=== PATIENT | male | born 1970 | race Two or more races ===

== ENCOUNTER 2020-04-28 23:47 | Emergency (ER) | payer OTHER ==
[~2020-04-28] VITALS: Ht 180.3 cm; Wt 112.9 kg
[2020-04-29] MEDS ORDERED: SODIUM CHLORIDE 0.9% 100 ML ONE (00:05)
[2020-04-29] MEDS ORDERED: IOVERSOL 350 MG/ML 100 ML VIAL ONE (00:05)
[2020-04-29 00:46] LABS: BASOPHILS % (AUTO) 0.4 % (0.0-2.0); EOSINOPHILS % (AUTO) 1.5 % (1.0-6.0); HEMATOCRIT 44.1 % (41-53); HEMOGLOBIN 14.9 g/dL (13.5-17.5); LYMPHOCYTES # (AUTO) 2.5 K/uL (1.0-4.8); LYMPHOCYTES % (AUTO) 24.8 % (22.0-44.0); MEAN CORPUSCULAR HEMOGLOBIN 29.9 pg (26.0-34.0); MEAN CORPUSCULAR HGB CONC 33.9 G/dL (31.0-37.0); MEAN CORPUSCULAR VOLUME 88 fL (80-100); MONOCYTES # (AUTO) 1.3 K/uL (0.1-1.0); MONOCYTES % (AUTO) 12.6 % (2.0-9.0); NEUTROPHILS % (AUTO) 60.7 % (40.0-70.0); PLATELET COUNT (AUTO) 426 K/uL (150-450); RED CELL DISTRIBUTION WIDTH 13.6 % (11.5-14.5)
[2020-04-29 00:51] LABS: ANION GAP 15 mmol/L (8-16); CALCIUM, TOTAL 9.2 mg/dL (8.8-10.5); CARBON DIOXIDE 20 mmol/L (22-29); CHLORIDE 98 mmol/L (98-107); CREATININE 1.01 mg/dL (0.60-1.30); GLOMERULAR FILTR. RATE CALC > 60 mL/min (>60); GLUCOSE,RANDOM 139 mg/dL (70-110); POTASSIUM 4.4 mmol/L (3.5-5.1); SODIUM SERUM 133 mmol/L (136-145); UREA NITROGEN, BLOOD 16 mg/dL (7-18)
[2020-04-29 00:52] VITALS: BP 143/92
[2020-04-29 00:57] LABS: ALANINE AMINOTRANSFERASE 80 U/L (12-78); ALBUMIN 3.1 g/dL (3.4-5.0); ALKALINE PHOSPHATASE 87 U/L (46-116); ASPARTATE AMINOTRANSFERASE 34 U/L (15-37); BILIRUBIN,TOTAL 1.3 mg/dL (0.1-1.0); TOTAL PROTEIN, SERUM 7.3 g/dL (6.4-8.2)
[2020-04-29 00:59] LABS: INR 1.2 (0.9-1.1); PROTHROMBIN TIME 12.8 SEC (9.4-11.6)
[2020-04-29] MEDS ORDERED: ASPIRIN 300 MG RECTAL SUPPOSITORY PR ONE (01:00)
[2020-04-29] MEDS ORDERED: LevETIRAcetam 1,000 MG in DEXTROSE 5%-WATER 100 ML IV ONE (01:00)
[2020-04-29] MEDS ORDERED: CARV25 PO (01:18)
[2020-04-29] MEDS ORDERED: PANT-31 PO (01:18)
[2020-04-29] MEDS ORDERED: SPIR25 PO (01:18)
[2020-04-29] MEDS ORDERED: NIAC250C16 PO (01:18)
[2020-04-29] MEDS ORDERED: LISI-893 PO (01:18)
[2020-04-29] MEDS ORDERED: EZET10TA13 PO (01:18)
[2020-04-29] MEDS ORDERED: ASPI81TA87 PO (01:18)
[2020-04-29] MEDS ORDERED: ATOR40TA28 PO (01:18)
[2020-04-29] MEDS ORDERED: BENZ-51 PO (01:20)
[2020-04-29 01:32] LABS: COVID AG,FIA SOURCE NASOPHARYNGEAL
== END 2020-04-29 04:08 | disposition short-term general hospital (02) ==
LOC: EMS 23:49
DX: I63.9 Cerebral infarction, unspecified (principal); J18.9 Pneumonia, unspecified organism; R47.01 Aphasia; I10 Essential (primary) hypertension; Z20.822 Contact with and (suspected) exposure to COVID-19; Z86.73 Personal history of transient ischemic attack (TIA), and cerebral infarction without residual deficits
CPT/HCPCS: 36415; 70450; 70496; 71045; 80053; 82962; 83605; 84484; 85025; 85610; 85730; 87426; 93005; 96374; 99291; 99292; J0712; J7050; J7060; Q9967

== ENCOUNTER 2024-03-07 12:59 | Emergency (ER) | payer MEDICARE, OTHER ==
[~2024-03-07] VITALS: Ht 175.3 cm; Wt 97.7 kg
[~2024-03-07 12:59] MED LIST: ASPI81TA87 PO; ATOR40TA28 PO; BENZ-227 PO; CARV25 PO; EZET10TA57 PO; LISI-893 PO; NIAC250C16 PO; PANT-31 PO; SPIR-37 PO
[2024-03-07 13:06] VITALS: TEMP 98.5
[2024-03-07] MEDS ORDERED: BRIV50TA PO ×2 (13:23→15:46)
[2024-03-07] MEDS ORDERED: DIAZ20SP MISC (13:23)
[2024-03-07] MEDS ORDERED: METF-1211 PO (13:23)
[2024-03-07] MEDS ORDERED: LOSA-381 PO (13:23)
[2024-03-07] MEDS ORDERED: RIVA2.5T3 PO (13:23)
[2024-03-07] MEDS ORDERED: EMPA10TA3 PO (13:23)
[2024-03-07 15:29] LABS: BASOPHILS % (AUTO) 0.3 % (0.0-2.0); HEMATOCRIT 51.3 % (41-53); LYMPHOCYTES # (AUTO) 1.9 K/uL (1.0-4.8); MEAN CORPUSCULAR HEMOGLOBIN 30.1 pg (26.0-34.0); MEAN CORPUSCULAR HGB CONC 33.2 G/dL (31.0-37.0); MEAN CORPUSCULAR VOLUME 91 fL (80-100); MONOCYTES # (AUTO) 0.6 K/uL (0.1-1.0); MONOCYTES % (AUTO) 8.2 % (2.0-9.0); NEUTROPHILS # (AUTO) 5.1 K/uL (1.8-7.7); NEUTROPHILS % (AUTO) 65.5 % (40.0-70.0); PLATELET COUNT (AUTO) 154 K/uL (150-450); RED BLOOD CELL COUNT(AUTO) 5.65 MIL/uL (4.50-5.90); WHITE BLOOD COUNT (AUTO) 7.8 K/uL (4.5-11.0)
[2024-03-07 15:36] LABS: ANION GAP 8 mmol/L (8-16); CALCIUM, TOTAL 9.2 mg/dL (8.8-10.5); CARBON DIOXIDE 27 mmol/L (22-29); CHLORIDE 103 mmol/L (98-107); CREATININE 0.95 mg/dL (0.60-1.30); GLOMERULAR FILTR. RATE CALC > 60 mL/min (>60); GLUCOSE,RANDOM 94 mg/dL (70-110); POTASSIUM 4.2 mmol/L (3.5-5.1); SODIUM SERUM 138 mmol/L (136-145); UREA NITROGEN, BLOOD 21 mg/dL (7-18)
[2024-03-07 15:43] LABS: ALCOHOL, BLOOD (SERUM) < 3 mg/dL (0-10)
[2024-03-07 15:45] VITALS: BP 120/78; PULSE 80; RESP 18; O2SAT 97
== END 2024-03-07 17:42 | disposition home or self-care (01) ==
LOC: EMS 12:59
DX: G40.909 Epilepsy, unspecified, not intractable, without status epilepticus (principal); I10 Essential (primary) hypertension; Z79.01 Long term (current) use of anticoagulants; Z79.82 Long term (current) use of aspirin; Z79.84 Long term (current) use of oral hypoglycemic drugs
CPT/HCPCS: 99283; 80048; 85025; 36415; G0480

== ENCOUNTER 2024-10-13 12:24 | Emergency (ER) | payer MEDICARE ==
[~2024-10-13] VITALS: Ht 172.7 cm; Wt 106.8 kg
[~2024-10-13 12:24] MED LIST changes: -BENZ-227 PO; +BRIV50TA PO; +DIAZ20SP MISC; +EMPA10TA3 PO; -LISI-893 PO; +LOSA-381 PO; +METF-1211 PO; -NIAC250C16 PO; -PANT-31 PO; +RIVA2.5T3 PO; -SPIR-37 PO
[2024-10-13] MEDS ORDERED: LOSA100T59 PO (12:44)
[2024-10-13] MEDS ORDERED: ESCI20TA37 PO (12:44)
[2024-10-13] MEDS ORDERED: SPIR-37 PO (12:44)
[2024-10-13] MEDS ORDERED: FAMO20 PO (12:44)
[2024-10-13 13:26] LABS: CALCIUM, TOTAL 9.1 mg/dL (8.8-10.5); CREATININE 1.14 mg/dL (0.60-1.30); GLOMERULAR FILTR. RATE CALC > 60 mL/min (>60); GLUCOSE,RANDOM 127 mg/dL (70-110); SODIUM SERUM 136 mmol/L (136-145); UREA NITROGEN, BLOOD 21 mg/dL (7-18)
[2024-10-13 13:27] LABS: PLATELET COUNT (AUTO) 207 K/uL (150-450); RED BLOOD CELL COUNT(AUTO) 5.64 MIL/uL (4.50-5.90); RED CELL DISTRIBUTION WIDTH 13.8 % (11.5-14.5); WHITE BLOOD COUNT (AUTO) 8.1 K/uL (4.5-11.0)
[2024-10-13 13:33] LABS: ASPARTATE AMINOTRANSFERASE 24.0 U/L (15-37); CREATINE KINASE, TOTAL ONLY 83.0 U/L (39-308); TOTAL PROTEIN, SERUM 7.6 g/dL (6.4-8.2)
[2024-10-13 13:34] LABS: TROPONIN I-HIGH SENSITIVITY 9 ng/L (<76)
[2024-10-13] MEDS: ACETAMINOPHEN 500 MG TABLET PO ONE (13:41)
[2024-10-13 14:33] LABS: APPEARANCE,URINE CLEAR (CLEAR); GLUCOSE, URINE (UA) >=1000 mg/dL (NEGATIVE); LEUKOCYTE ESTERASE ,URINE NEGATIVE (NEGATIVE); NITRATE,URINE NEGATIVE (NEGATIVE); OCCULT BLOOD,URINE NEGATIVE (NEGATIVE); SPECIFIC GRAVITIY, URINE 1.038 (1.003-1.030)
[2024-10-13 14:45] VITALS: BP 124/75; PULSE 82; RESP 16; TEMP 98.6; O2SAT 98
[2024-10-13] MEDS ORDERED: BRIV75TA PO (15:10)
== END 2024-10-13 16:40 | disposition home or self-care (01) ==
LOC: EMS 12:24
DX: R53.1 Weakness (principal); G40.909 Epilepsy, unspecified, not intractable, without status epilepticus; E78.00 Pure hypercholesterolemia, unspecified; I10 Essential (primary) hypertension; Z86.73 Personal history of transient ischemic attack (TIA), and cerebral infarction without residual deficits; Z79.82 Long term (current) use of aspirin; Z95.810 Presence of automatic (implantable) cardiac defibrillator; Z79.01 Long term (current) use of anticoagulants; Z79.899 Other long term (current) drug therapy
CPT/HCPCS: 71045; 80048; 80076; 81001; 82550; 83880; 84484; 85025; 85610; 85730; 93005; 99285; 36415-L1; 36415-TC

== ENCOUNTER 2025-01-29 12:01 | Emergency (ER) | payer MEDICARE ==
[~2025-01-29] VITALS: Ht 172.7 cm; Wt 109.0 kg
[~2025-01-29 12:01] MED LIST changes: -BRIV50TA PO; +BRIV75TA PO; -DIAZ20SP MISC; +ESCI20TA37 PO; +FAMO20 PO; -LOSA-381 PO; +LOSA100T59 PO; +SPIR-37 PO
[2025-01-29 12:09] VITALS: TEMP 98.2
[2025-01-29 13:27] LABS: PLATELET COUNT (AUTO) 156 K/uL (150-450); RED BLOOD CELL COUNT(AUTO) 5.25 MIL/uL (4.50-5.90); RED CELL DISTRIBUTION WIDTH 14.0 % (11.5-14.5); WHITE BLOOD COUNT (AUTO) 5.6 K/uL (4.5-11.0)
[2025-01-29 13:35] LABS: CALCIUM, TOTAL 9.4 mg/dL (8.8-10.5); CREATININE 0.84 mg/dL (0.60-1.30); GLOMERULAR FILTR. RATE CALC > 60 mL/min (>60); GLUCOSE,RANDOM 118 mg/dL (70-110); SODIUM SERUM 140 mmol/L (136-145); UREA NITROGEN, BLOOD 21 mg/dL (7-18)
[2025-01-29 13:53] LABS: TROPONIN I-HIGH SENSITIVITY 7 ng/L (<76)
[2025-01-29 15:31] VITALS: BP 117/90; PULSE 74; RESP 18; O2SAT 97
== END 2025-01-29 15:47 | disposition short-term general hospital (02) ==
LOC: EMS 12:04
DX: R07.89 Other chest pain (principal); R06.02 Shortness of breath; R06.09 Other forms of dyspnea; E78.00 Pure hypercholesterolemia, unspecified; I11.0 Hypertensive heart disease with heart failure; I25.10 Atherosclerotic heart disease of native coronary artery without angina pectoris; Z79.01 Long term (current) use of anticoagulants; Z79.82 Long term (current) use of aspirin; Z79.899 Other long term (current) drug therapy
CPT/HCPCS: 71045; 80048; 83880; 84484; 85025; 85610; 85730; 93005; 99285; 36415-L1; 36415-TC

== ENCOUNTER 2025-03-11 11:07 | Inpatient (IN) | payer MEDICARE ==
[~2025-03-11] VITALS: Ht 175.3 cm; Wt 101.6 kg
[~2025-03-11 11:07] MED LIST changes: -CARV25 PO; +LOSA-381 PO; -LOSA100T59 PO; +METO25XL PO
[2025-03-11 12:07] LABS: PLATELET COUNT (AUTO) 155 K/uL (150-450); RED BLOOD CELL COUNT(AUTO) 5.13 MIL/uL (4.50-5.90); RED CELL DISTRIBUTION WIDTH 13.9 % (11.5-14.5); WHITE BLOOD COUNT (AUTO) 9.4 K/uL (4.5-11.0)
[2025-03-11] MEDS: AMIODARONE HCL 150 MG in DEXTROSE 5%-WATER 97 ML IV ONE (12:13)
[2025-03-11] MEDS: AMIODARONE HCL 360 MG in DEXTROSE 5%-WATER 242.8 ML IV ONE (12:13)
[2025-03-11 12:14] LABS: CALCIUM, TOTAL 8.8 mg/dL (8.8-10.5); CREATININE 1.02 mg/dL (0.60-1.30); GLOMERULAR FILTR. RATE CALC > 60 mL/min (>60); GLUCOSE,RANDOM 173 mg/dL (70-110); SODIUM SERUM 138 mmol/L (136-145); UREA NITROGEN, BLOOD 20 mg/dL (7-18)
[2025-03-11 12:22] LABS: TROPONIN I-HIGH SENSITIVITY 13 ng/L (<76)
[2025-03-11] MEDS ORDERED: BISACODYL 10 MG RECTAL RECTAL SUPPOSITORY PR PRN (16:30)
[2025-03-11] MEDS ORDERED: MAGNESIUM HYDROXIDE SUSPENSION 30 ML UDCUP PO PRN (16:30)
[2025-03-11] MEDS ORDERED: ACETAMINOPHEN 325 MG TABLET PO PRN (16:30)
[2025-03-11] MEDS ORDERED: HYDROCODONE/ACETAMINOPHEN 5-325 MG TABLET PO PRN (16:30)
[2025-03-11] MEDS ORDERED: MORPHINE SULFATE 4 MG/ML SYRINGE IVP PRN (16:30)
[2025-03-11] MEDS ORDERED: ONDANSETRON HCL 4 MG/2 ML VIAL IVP PRN (16:30)
[2025-03-11] MEDS: AMIODARONE HCL 540 MG in DEXTROSE 5%-WATER 250 ML IV ONE (17:07)
[2025-03-11 17:31] LABS: TROPONIN I-HIGH SENSITIVITY 70 ng/L (<76)
[2025-03-11] MEDS: PERFLUTREN PROTEIN-A MICROSPHERES 0.22 MG/ML 3 ML VIAL IVP ONE (17:47)
[2025-03-11 18:38] LABS: APPEARANCE,URINE CLEAR (CLEAR); GLUCOSE, URINE (UA) >=1000 mg/dL (NEGATIVE); LEUKOCYTE ESTERASE ,URINE NEGATIVE (NEGATIVE); NITRATE,URINE NEGATIVE (NEGATIVE); OCCULT BLOOD,URINE NEGATIVE (NEGATIVE); SPECIFIC GRAVITIY, URINE 1.028 (1.003-1.030)
[2025-03-11 19:18] LABS: SQUAMOUS EPITHELIAL CELL,UR Rare /LPF (None Seen)
[2025-03-11] MEDS: DOCUSATE SODIUM 100 MG CAPSULE PO SCH (20:33)
[2025-03-11] MEDS: ATORVASTATIN CALCIUM 40 MG TABLET PO SCH (20:34)
[2025-03-11] MEDS: ZOLPIDEM TARTRATE 5 MG TABLET PO PRN (20:37)
[2025-03-11] MEDS ORDERED: LOSARTAN POTASSIUM 25 MG TABLET PO SCH (21:00)
[2025-03-11] MEDS: RIVAROXABAN 2.5 MG TABLET PO SCH (21:11)
[2025-03-11 22:00] VITALS: BP 125/71; PULSE 91; RESP 22; TEMP 98.6; O2SAT 98
[2025-03-12] VITALS: BP 120/66; PULSE 116; RESP 22; TEMP 98.8; O2SAT 98
[2025-03-12 04:00] VITALS: BP 109/65; PULSE 78; RESP 22; TEMP 98.8; O2SAT 99
[2025-03-12 05:29] LABS: PLATELET COUNT (AUTO) 163 K/uL (150-450); RED BLOOD CELL COUNT(AUTO) 5.25 MIL/uL (4.50-5.90); RED CELL DISTRIBUTION WIDTH 13.7 % (11.5-14.5); WHITE BLOOD COUNT (AUTO) 9.6 K/uL (4.5-11.0)
[2025-03-12 06:11] LABS: TROPONIN I-HIGH SENSITIVITY 67 ng/L (<76)
[2025-03-12 06:27] LABS: CALCIUM, TOTAL 9.2 mg/dL (8.8-10.5); CREATININE 0.96 mg/dL (0.60-1.30); GLOMERULAR FILTR. RATE CALC > 60 mL/min (>60); GLUCOSE,RANDOM 108 mg/dL (70-110); SODIUM SERUM 137 mmol/L (136-145); UREA NITROGEN, BLOOD 19 mg/dL (7-18)
[2025-03-12 08:00] VITALS: BP 122/81; PULSE 108; RESP 28; TEMP 98.6; O2SAT 98
[2025-03-12] MEDS ORDERED: METOPROLOL SUCCINATE 25 MG ER TABLET PO SCH (09:00)
[2025-03-12] MEDS: PANTOPRAZOLE SODIUM 40 MG DR TABLET PO SCH (09:29)
[2025-03-12] MEDS: METOPROLOL SUCCINATE 25 MG ER TABLET PO SCH (09:29)
[2025-03-12] MEDS: ASPIRIN 81 MG DR TABLET PO SCH (09:29)
[2025-03-12] MEDS: EZETIMIBE 10 MG TABLET PO SCH (09:30)
[2025-03-12] MEDS: EMPAGLIFLOZIN 10 MG TABLET PO SCH (09:30)
[2025-03-12] MEDS: LOSARTAN POTASSIUM 25 MG TABLET PO SCH (09:30)
[2025-03-12] MEDS: SPIRONOLACTONE 25 MG TABLET PO SCH (09:30)
[2025-03-12 12:00] VITALS: BP 110/66; PULSE 104; RESP 23; TEMP 98.8; O2SAT 99
[2025-03-12] MEDS: AMIODARONE HCL 750 MG in DEXTROSE 5%-WATER 485 ML IV SCH (12:20)
[2025-03-12 16:00] VITALS: BP 139/103; PULSE 108; PULSE 118; RESP 14; TEMP 98.6; O2SAT 99
[2025-03-12] MEDS: METOPROLOL SUCCINATE 25 MG ER TABLET PO ONE (16:40)
[2025-03-12] MEDS ORDERED: RIVAROXABAN 20 MG TABLET PO SCH (17:30)
[2025-03-12 20:00] VITALS: BP 112/78; PULSE 94; RESP 17; TEMP 98.9; O2SAT 98
[2025-03-12] MEDS: APIXABAN 5 MG TABLET PO SCH (20:34)
[2025-03-13] VITALS (7 sets, daily range): BP systolic 92–120; BP diastolic 55–83; PULSE 67–100; RESP 16–23; TEMP 97.9–98.9; O2SAT 95–99
[2025-03-13 05:43] LABS: CALCIUM, TOTAL 9.2 mg/dL (8.8-10.5); CREATININE 0.99 mg/dL (0.60-1.30); GLOMERULAR FILTR. RATE CALC > 60 mL/min (>60); GLUCOSE,RANDOM 108 mg/dL (70-110); SODIUM SERUM 138 mmol/L (136-145); UREA NITROGEN, BLOOD 19 mg/dL (7-18)
[2025-03-13 05:57] LABS: PLATELET COUNT (AUTO) 162 K/uL (150-450); RED BLOOD CELL COUNT(AUTO) 5.44 MIL/uL (4.50-5.90); RED CELL DISTRIBUTION WIDTH 13.7 % (11.5-14.5); WHITE BLOOD COUNT (AUTO) 8.2 K/uL (4.5-11.0)
[2025-03-13 06:35] LABS: GLUCOMETER DEV NAME(LOC) ICU.S7; GLUCOSE,POINT OF CARE 76 MG/DL (70-110)
[2025-03-13] MEDS: METOPROLOL SUCCINATE 50 MG ER TABLET PO SCH (08:00)
[2025-03-14 00:12] VITALS: BP 121/77; PULSE 53; RESP 18; TEMP 97.7; O2SAT 96
[2025-03-14 04:03] VITALS: BP 104/77; PULSE 65; RESP 18; TEMP 97.5; O2SAT 98
[2025-03-14 06:33] LABS: CALCIUM, TOTAL 9.1 mg/dL (8.8-10.5); CREATININE 1.04 mg/dL (0.60-1.30); GLOMERULAR FILTR. RATE CALC > 60 mL/min (>60); GLUCOSE,RANDOM 109 mg/dL (70-110); SODIUM SERUM 137 mmol/L (136-145); UREA NITROGEN, BLOOD 19 mg/dL (7-18)
[2025-03-14 07:06] LABS: PLATELET COUNT (AUTO) 160 K/uL (150-450); RED BLOOD CELL COUNT(AUTO) 5.54 MIL/uL (4.50-5.90); RED CELL DISTRIBUTION WIDTH 13.8 % (11.5-14.5); WHITE BLOOD COUNT (AUTO) 8.2 K/uL (4.5-11.0)
[2025-03-14 08:18] VITALS: BP 116/93; PULSE 65; RESP 18; TEMP 97.5; O2SAT 99
[2025-03-14] MEDS: AMIODARONE HCL 200 MG TABLET PO SCH (09:10)
[2025-03-14] MEDS ORDERED: AMIO200T73 PO (11:01)
[2025-03-14 11:32] VITALS: BP_SYST 110; BP_SYST 121; BP_DIAS 80; BP_DIAS 84; PULSE 91; RESP 18; TEMP 97.9; O2SAT 99
== END 2025-03-14 15:10 | disposition home or self-care (01) | DRG 310 ==
LOC: EMS 11:07 → EDH 12:25 → ICU 21:53 → 5N 03-13 21:26
PROVIDERS: ADMIT Internal Medicine; ATTEND Internal Medicine
PROC: 4B02XTZ Measurement of Cardiac Defibrillator, External Approach (ICD-10-PCS; principal; 2025-03-12)
DX: I48.20 Chronic atrial fibrillation, unspecified (principal); I51.3 Intracardiac thrombosis, not elsewhere classified; I47.20 Ventricular tachycardia, unspecified; I50.9 Heart failure, unspecified; I11.0 Hypertensive heart disease with heart failure; E11.9 Type 2 diabetes mellitus without complications; E66.9 Obesity, unspecified; G40.909 Epilepsy, unspecified, not intractable, without status epilepticus; I42.0 Dilated cardiomyopathy; Z86.74 Personal history of sudden cardiac arrest; I48.0 Paroxysmal atrial fibrillation; E78.5 Hyperlipidemia, unspecified; I25.5 Ischemic cardiomyopathy; I49.3 Ventricular premature depolarization; I49.5 Sick sinus syndrome; I44.1 Atrioventricular block, second degree; I25.10 Atherosclerotic heart disease of native coronary artery without angina pectoris; I25.2 Old myocardial infarction; Z95.5 Presence of coronary angioplasty implant and graft; Z95.810 Presence of automatic (implantable) cardiac defibrillator; Z86.73 Personal history of transient ischemic attack (TIA), and cerebral infarction without residual deficits; Z68.33 Body mass index [BMI] 33.0-33.9, adult
CPT/HCPCS: 71045; 80048; 81001; 82962; 83735; 83880; 84484; 85025; 85610; 85730; 87081; 93005; 99291; C8924; J0282; J7060; 36415-L1; 36415-TC